=== PATIENT | female | born 2000 | race Two or more races ===

== ENCOUNTER 2024-09-18 20:54 | Observation (INO) | payer MEDICAID, SELFPAY ==
[2024-09-18 21:10] VITALS: BMI 34.7
[2024-09-18 21:12] VITALS: RESP 17; TEMP 36.8
[2024-09-18 21:16] VITALS: BP 140/89; PULSE 74
[2024-09-18 21:32] VITALS: BP 140/79; PULSE 71
== END 2024-09-18 21:57 | disposition home or self-care (01) ==
PROVIDERS: Admitting Provider Obstetrics & Gynecology; Visit Provider Obstetrics & Gynecology
DX: Z34.83 Encounter for supervision of other normal pregnancy, third trimester (principal); Z3A.39 39 weeks gestation of pregnancy
CPT/HCPCS: 59025; 59899

== ENCOUNTER 2024-09-23 05:18 | Inpatient (IN) | payer MEDICAID, SELFPAY ==
--- NOTE | 2024-09-22 21:32 | ESHP_ITS ---
Documentation for date of: 09/22/24 OB Labor/Induct. HPI History of Present Illness Chief complaint: Repeat section : 3 Para: 2 LISBET: 09/24/24 Gestational Age (weeks): 39 Gestational Age (days): 5 History of present illness: 24-year-old -0-0-2 at 39 weeks 5 days at the time of dictation is scheduled for repeat low-transverse section. Patient started care in [place] but she transferred care to [place] for trial of labor. She has been noted to have some occasional mild range blood pressures but she never received a diagnosis of gestational hypertension. The physicians overseeing her in [place] refused trial of labor due to her history of 2 previous deliveries and a vertical skin incision. Patient was scheduled for repeat at the [facility] on Sunday but she did no-show to that and was seen here in [place]. She was scheduled for the first available date of 09/23/2024. Scanned record was reviewed. Review of Systems Review of Systems Systems Reviewed: All systems reviewed, normal except as documented Meds Home Medications and Allergies Allergies Allergy/AdvReac Type Severity Reaction Status Date / Time No Known Allergies Allergy Verified 09/18/24 21:50 OB Exam Constitutional Constitutional: no acute distress Routine HEENT Exam Head: Present normocephalic and atraumatic Eye: Present EOMI and PERRL ENT: Present mucous membranes moist Routine Neck Exam Neck: Present supple and trachea midline Routine Cardiovascular Exam Cardiovascular: Present RRR Routine Abdominal Exam Abdominal: Present soft and normoactive bowel sounds Detailed Labor and Delivery Exam Dilation (cm): 0 Baseline heart rate: 140 monitor accelerations: 15x15 monitor decelerations: None Routine Extremities Exam Extremities: Present full ROM Routine Skin Exam Skin: Present intact, dry and warm Routine Neurological Exam Neurological: Present alert, oriented X3 and CN II-XII intact Routine Psychiatric Exam Psychiatric: Present normal affect and normal thought process OB Assessment & Plan Assessment and Plan (1) Previous delivery affecting : Status: Acute Assessment and plan: Admit to inpatient status for repeat low transverse IV access, CBC, type and screen, LR at 125, RPR, COVID-19 test Preeclampsia panel GBS negative Ancef 2 g prior to surgery start Reza catheter to drainage SCDs for DVT prophylaxis Anesthesia to preop for spinal anesthesia Scheduled for surgery.
[2024-09-23] VITALS (17 sets, daily range): BP systolic 118–150; BP diastolic 54–93; PULSE 58–87; RESP 15–25; TEMP 36.4–37.2; O2SAT 95–100; BMI 35.1
[2024-09-23 06:21] LABS: Collection Type, Urine Clean Catch
[2024-09-23 06:26] LABS: Basophils % (Auto) 1 % (0-2.5); Eosinophils % (Auto) 2 % (0-10); Hematocrit 34.4 % (36.0-46.0); Hemoglobin 11.5 g/dL (12.0-16.0); Lymphocytes # (Auto) 2.7 Thou/mm3 (1.0-4.8); Lymphocytes % (Auto) 32 % (10-50); Mean Corpuscular HGB Conc 33.4 g/dl (31.0-37.0); Mean Corpuscular Hemoglobin 28.5 pg (25.0-35.0); Mean Corpuscular Volume 85 fL (80-100); Monocytes # (Auto) 0.6 Thou/mm3 (0.0-0.8); Monocytes % (Auto) 7 % (0-12); Neutrophils % (Auto) 59 % (37-80); Platelet Count 144 Thou/mm3 (140-440); Red Blood Count 4.04 Miln/mm3 (4.00-5.20); White Blood Count 8.4 Thou/mm3 (3.6-11.0)
[2024-09-23 06:27] LABS: Basophils # (Auto) 0.1 Thou/mm3 (0.0-0.2); Eosinophils # (Auto) 0.1 Thou/mm3 (0.0-0.5); Immature Granulocytes % (Auto) 0 % (0-0); Immature Granulocytes Auto 0.03 Thou/mm3 (0.00-0.00); Nucleated Red Blood Cell % 0 /100 WBC (0)
[2024-09-23 06:34] LABS: Bilirubin,Urine Negative (Negative); Blood,Urine 1+ (Negative); Clarity,Urine Clear (Clear/Hazy); Color,Urine Lt-Yellow (Lt Yel-Yel); Glucose, Urine Negative (Negative); Ketones,Urine Negative (Negative); Leukocyte Esterase,Urine Negative (Negative); Nitrite,Urine Negative (Negative); PH,Urine 6.5 (5.0-7.0); Protein,Urine Trace (Neg - Trace); RBC,Urine 29 /hpf (0-3); Specific Gravity,Urine 1.025 (1.001-1.035); Squamous Epithelial Cell,Urine 1 /hpf (0-5); Urobilinogen,Urine Negative mg/dL (0.0-1.0); WBC,Urine 1 /hpf (0-5)
[2024-09-23 07:07] LABS: Alanine Aminotransferase 14 U/L (10-49); Albumin, Serum 3.8 gm/dL (3.5-5.0); Albumin/Globulin Ratio 1.8 (1.2-2.2); Alkaline Phosphatase 220 U/L (46-116); Anion Gap 8 (7-16); Aspartate Amino Transferase 14 U/L (0-34); BUN/Creatinine Ratio 28 Ratio (12-20); Bilirubin,Total 0.6 mg/dL (0.3-1.2); Blood Urea Nitrogen 14 mg/dL (9-23); Calcium 8.6 mg/dL (8.3-10.6); Calcium (Corrected) 8.8 mg/dL (8.5-10.1); Carbon Dioxide 22.3 mMol/L (20.0-31.0); Chloride 106 mMol/L (98-107); Creatinine (Component) 0.5 mg/dL (0.6-1.3); Globulin 2.1 gm/dL (2.3-3.5); Glucose 83 mg/dL (74-106); Osmolality,Calculated 271 (275-295); Sodium 136 mMol/L (136-145); Total Protein 5.9 gm/dL (5.7-8.2); Uric Acid 4.6 mg/dL (3.1-7.8); eGFR > 60 See Note
[2024-09-23] MEDS: RINGERS LACTATED 1000 ML 1,000 ML 100 ML IV (07:21)
[2024-09-23] MEDS: FAMOTIDINE INJ 10 MG/ML VIAL 2 ML 20 MG IV (07:21)
[2024-09-23] MEDS: CITRIC ACID/SODIUM CITR 15 ML UDC (BICITRA) 30 ML PO (07:21)
[2024-09-23] MEDS: ceFAZolin/D5W 2 GM IV 2 GM/100 ML BAG IV (07:21)
[2024-09-23 07:42] LABS: Fibrinogen 377 mg/dL (175-375); INR 0.9 (0.9-1.3); Partial Thromboplastin Time 26.5 Seconds (22.0-36.0); Prothrombin Time 10.1 Seconds (9.0-12.2)
--- NOTE | 2024-09-23 08:54 | PD.LDDELS ---
Data (Bravo) Data Hx Section: Yes : 3 Para: 2 Term: 2 : 0 : 0 Delivery Data (Bravo) Labor Data ROM Date: 09/23/24 ROM Time: 08:01 Rupture Type: AROM Amniotic Fluid: Clear Delivery Data Labor Onset Stage 1 Date: 09/23/24 Labor Onset Stage 1 Time: 08:01 Labor Onset Stage 2 Date: 09/23/24 Labor Onset Stage 2 Time: 08:01 Delivery Date: 09/23/24 Delivery Time: 08:02 Placenta Delivery Date: 09/23/24 Placenta Delivery Time: 08:02 Delivered by: Nick Murray Delivery nurse: Lynnette Sneed Other staff at delivery: Nursery Nurse Other staff at delivery: Rubia Pelletier Delivery Method Delivery: Delivery Type: Repeat Anesthesia Type Primary Anesthesia: Spinal Umbilical Cord Nuchal Cord: x1 Data (Bravo) Data Gender: Female Weight Grams: 3535 1 Minute Total: 9 5 Minute Total: 9
--- NOTE | 2024-09-23 08:55 | PD.GYNPROC ---
Operative Note - INVENTORY CONTROL MANAGER Procedure Date of procedure: 09/23/24 Procedure Performed: Repeat low-transverse Indication: IUP at 39 weeks and 4 days. Previous section x 2 Pre-Op diagnosis: IUP at 39 weeks and 4 days. Previous section x 2 Post-Op diagnosis: IUP at 39 weeks and 4 days. Previous section x 2 Viable female Anesthesia type: Spinal Procedure description: The patient was taken to the OR, spinal anesthesia was used and was adequate.? 2 g of Ancef were given for infection prophylaxis.? She was prepped and draped in dorsal supine position.? ?A Pfannenstiel skin incision was made with a scalpel Incision was carried down through the fascia with the Bovie and carried out to the fascia Peritoneum was? entered bluntly. The uterine incision was performed and extended bluntly.? Baby delivered from vertex presentation without any complications. ?Nose and mouth were suctioned on the operative field, cord was then clamped and cut.? The was handed off to the nurse.? Cord blood was obtained. IV oxytocin? was initiated to facilitate uterine contractions The uterus was exteriorized.? The inside of the uterus was then cleaned with a lap sponge to ensure complete removal of the placental membranes without complications. Then the hysterotomy was repaired along the uterine incision with 0 Vicryl in a locked fashion and? then in a running fashion with the same suture. 1g of TXA IV was given. The uterus was inspected in the abdomen and noted to be firm,? the uterine incision was reinspected with excellent hemostasis noted after 0.2mg of methergine IM. Muscle layer was closed with 2-0 chromic in a running fashion Fascia layer was closed with an 0 Vicryl in a running fashion Subcutaneous layer was closed with plain gut Skin was close with 4-0 Monocryl Specimen: none Estimated blood loss (ml): 700 Findings: Normal uterus, tubes, ovaries Complications: none Surgical staff Operation Date: 09/23/24 07:45 <No data on this case meets the specified criteria> Diagnosis Problem List Completed Was Problem List Reviewed/Reconciled?: Yes
[2024-09-23 08:56] LABS: Syphilis Nonreactive (Nonreactive)
[2024-09-23] MEDS: OXYTOCIN in NS 20 units 20 UNIT/1,000 ML BAG 125 UNIT IV ×2 (10:01→18:17)
[2024-09-23] MEDS: OXYTOCIN INJ 10 UNIT/ML VIAL IM (10:22)
--- NOTE | 2024-09-23 11:04 | PC.NURSE ---
Dr. Murray called order received to give TXA
[2024-09-23] MEDS: TRANEXAMIC ACID 1,000 MG IVPB 1,000 MG/100 ML BAG 200 MG IV (11:07)
[2024-09-23] MEDS: METHYLERGONOVINE INJ 0.2 MG/ML VIAL IM (12:50)
[2024-09-23 14:24] LABS: Basophils % (Auto) 0 % (0-2.5); Eosinophils % (Auto) 0 % (0-10); Hematocrit 37.3 % (36.0-46.0); Hemoglobin 12.3 g/dL (12.0-16.0); Immature Granulocytes % (Auto) 1 % (0-0); Lymphocytes # (Auto) 0.9 Thou/mm3 (1.0-4.8); Lymphocytes % (Auto) 4 % (10-50); Mean Corpuscular Hemoglobin 28.1 pg (25.0-35.0); Mean Corpuscular Volume 85 fL (80-100); Monocytes # (Auto) 0.3 Thou/mm3 (0.0-0.8); Monocytes % (Auto) 1 % (0-12); Neutrophils # (Auto) 19.3 Thou/mm3 (1.8-7.7); Neutrophils % (Auto) 94 % (37-80); Nucleated Red Blood Cell % 0 /100 WBC (0); Platelet Count 158 Thou/mm3 (140-440); Red Blood Count 4.37 Miln/mm3 (4.00-5.20); White Blood Count 20.7 Thou/mm3 (3.6-11.0)
[2024-09-23] MEDS: LOPERAMIDE 2 MG CAPSULE PO (15:27)
[2024-09-23] MEDS: ACETAMINOPHEN IVPB 1,000 MG/100 ML VIAL 250 MG IV (15:27)
[2024-09-23] MEDS: CARBOPROST TROMETH INJ 250 MCG/ML VIAL IM (15:34)
--- NOTE | 2024-09-23 15:59 | PC.NURSE ---
@[id number] dr Murray at bedside did manual extraction of clots. pt tolerated. IV pain medication is running.
[2024-09-24] VITALS: BP 116/64; PULSE 84; RESP 20; TEMP 36.9; O2SAT 96
[2024-09-24] MEDS: RINGERS LACTATED 1000 ML 1,000 ML 125 ML IV (03:08)
[2024-09-24 04:00] VITALS: BP 101/56; PULSE 85; RESP 19; TEMP 36.8; O2SAT 97
[2024-09-24 05:34] LABS: Basophils % (Auto) 0 % (0-2.5); Eosinophils % (Auto) 0 % (0-10); Hematocrit 28.5 % (36.0-46.0); Hemoglobin 9.5 g/dL (12.0-16.0); Immature Granulocytes % (Auto) 1 % (0-0); Immature Granulocytes Auto 0.06 Thou/mm3 (0.00-0.00); Lymphocytes # (Auto) 2.3 Thou/mm3 (1.0-4.8); Lymphocytes % (Auto) 18 % (10-50); Mean Corpuscular HGB Conc 33.3 g/dl (31.0-37.0); Mean Corpuscular Hemoglobin 28.2 pg (25.0-35.0); Mean Corpuscular Volume 85 fL (80-100); Monocytes % (Auto) 8 % (0-12); Neutrophils # (Auto) 9.4 Thou/mm3 (1.8-7.7); Neutrophils % (Auto) 74 % (37-80); Nucleated Red Blood Cell % 0 /100 WBC (0); Platelet Count 136 Thou/mm3 (140-440); RDW Standard Deviation 44.7 fL (36.4-46.3); Red Blood Count 3.37 Miln/mm3 (4.00-5.20); White Blood Count 12.7 Thou/mm3 (3.6-11.0)
[2024-09-24] MEDS: KETOROLAC INJ 30 MG/ML VIAL IVP (06:13)
--- NOTE | 2024-09-24 07:50 | PD.LDPPPRG ---
Subjective Subjective Interval history: In the bedside. Afebrile, tolerating p.o., ambulating, voiding, positive flatus Exam Vital Signs Temp Pulse Resp BP Pulse Ox O2 Del Method 98.3 F 85 19 101/56 L 97 Room Air 09/24/24 04:00 09/24/24 04:00 09/24/24 04:00 09/24/24 04:00 09/24/24 04:00 09/24/24 04:00 Routine Abdominal Exam Comments: Soft, appropriate tender. Uterus firm, below the umbilicus. Incision clean, dry, intact Routine Exam Comments: Lochia similar to menses Routine Extremities Exam Comments: Homans' sign negative Objective Labs 09/24/24 05:10 09/23/24 05:51 Labs: Laboratory Results - last 24 hr 09/23/24 09/23/24 09/23/24 05:51 07:23 12:56 WBC 20.7 H D RBC 4.37 Hgb 12.3 Hct 37.3 MCV 85 MCH 28.1 MCHC 33.0 RDW Std Deviation 45.0 Plt Count 158 Neut % (Auto) 94 H Lymph % (Auto) 4 L Traill % (Auto) 1 Eos % (Auto) 0 Baso % (Auto) 0 Neut # (Auto) 19.3 H Lymph # (Auto) 0.9 L Traill # (Auto) 0.3 Eos # (Auto) 0.0 Baso # (Auto) 0.0 Immature Gran # (Auto) 0.10 H Absolute Nucleated RBC 0.00 Immature Gran % 1 H Nucleated RBC % 0 Syphilis Serology Nonreactive Blood Type Cancelled O Positive Antibody Screen Cancelled NEGATIVE Crossmatch See Detail Blood Bank Wristband ID Cancelled Yes 09/24/24 05:10 WBC 12.7 H D RBC 3.37 L Hgb 9.5 L D Hct 28.5 L MCV 85 MCH 28.2 MCHC 33.3 RDW Std Deviation 44.7 Plt Count 136 L Neut % (Auto) 74 Lymph % (Auto) 18 Traill % (Auto) 8 Eos % (Auto) 0 Baso % (Auto) 0 Neut # (Auto) 9.4 H Lymph # (Auto) 2.3 Traill # (Auto) 1.0 H Eos # (Auto) 0.0 Baso # (Auto) 0.0 Immature Gran # (Auto) 0.06 H Absolute Nucleated RBC 0.00 Immature Gran % 1 H Nucleated RBC % 0 Syphilis Serology Blood Type Antibody Screen Crossmatch Blood Bank Wristband ID Assessment & Plan Problem List (1) Previous delivery affecting : Status: Acute Assessment Comment Assessment comment: 24 years status post repeat at term. Postop day 1 Plan Comment Plan Comment: Routine care. Impression relation. IV iron infusions Time Spent With Patient Time: Total time spent is greater than 50% in coordination of care (as documented) at patient's floor/unit and/or counseling patient:
[2024-09-24 09:05] VITALS: BP 121/65; PULSE 89; RESP 16; TEMP 37.1; O2SAT 97
[2024-09-24] MEDS: HYDROcodone/APAP 5/325 TABLET 1 TAB PO ×2 (09:43→15:44)
--- NOTE | 2024-09-24 10:52 | PC.SS ---
INFANTRY OPERATIONS SPECIALIST received referral indicating FOB requesting assistance with FMLA paperwork. INFANTRY OPERATIONS SPECIALIST utilized translation services to inform FOB that request would need to submitted with employer's human resource department. FOB acknowledged plan to follow up with employment HR department. INFANTRY OPERATIONS SPECIALIST observed MOB interacting appropriately with daughter. No concerns voiced from bedside nurse.
[2024-09-24 11:43] VITALS: BP 115/68; PULSE 80; RESP 18; TEMP 36.9; O2SAT 98
[2024-09-24 15:40] VITALS: BP 122/81; PULSE 82; RESP 16; TEMP 37; O2SAT 96
[2024-09-24] MEDS: guaiFENesin/DM 10 ML UDC PO (17:11)
--- NOTE | 2024-09-24 17:28 | XR_ITS ---
Examination: PA lateral chest 2 views Technique: Upright PA lateral chest 2 views Exam date and time: September 24, 2024 1758 hrs. Indications: Coughing chest pain post labor today. Findings: Suspicious for early pneumonia at the lung bases with small bilateral pleural effusions evident on the lateral view No pulmonary edema Intact osseous structures Impression: Suspicious for early bibasilar pneumonia
[2024-09-24] MEDS: AZITHROMYCIN 250 MG TABLET 500 MG PO (17:38)
--- NOTE | 2024-09-24 18:16 | PC.NURSE ---
PT WAS COMPLAINING OF COUGH. DAVE LOWER LUNGS WITH CRACKLES. VS STABLE NO TEMP. MADE DR CHAVEZ AWARE. NEW ORDER FOR 2 VIEW CXR AND PO AZITHROMYCIN.
[2024-09-24 21:01] VITALS: BP 128/81; PULSE 81; RESP 18; TEMP 37.1; O2SAT 95
[2024-09-24] MEDS: cefTRIAXone/D5w 1gm IV premix 50 ML IV (21:14)
[2024-09-25] MEDS: IBUPROFEN TAB 400 MG TABLET 800 MG PO (00:27)
[2024-09-25 04:45] VITALS: BP 126/81; PULSE 79; RESP 16; TEMP 36.8; O2SAT 95
[2024-09-25] MEDS: guaiFENesin/DM 10 ML UDC PO ×3 (07:21→22:11)
[2024-09-25] MEDS: AZITHROMYCIN 250 MG TABLET 500 MG PO (08:34)
[2024-09-25] MEDS: ENOXAPARIN SOD INJ 40 MG/0.4 ML SYRINGE SC (08:34)
--- NOTE | 2024-09-25 08:45 | PD.LDPPPRG ---
Subjective Subjective Interval history: Delivery type: Patient doing well this morning. No acute complaints. Ambulating, tolerating p.o. and voiding without difficulty. HTN/Pre-Eclampsia screen: No chest pain, shortness of breath, headache, visual changes, epigastric or right upper quadrant pain. Breast-feeding, lochia diminishing. Bowel: Flatus+/ BM+ Exam Vital Signs Temp Pulse Resp BP Pulse Ox O2 Del Method 98.3 F 79 16 126/81 95 Room Air 09/25/24 04:45 09/25/24 04:45 09/25/24 04:45 09/25/24 04:45 09/25/24 04:45 09/25/24 04:45 Constitutional Constitutional: no acute distress Routine HEENT Exam Head: Present normocephalic and atraumatic Eye: Present EOMI and PERRL ENT: Present mucous membranes moist Routine Neck Exam Neck: Present supple and trachea midline Routine Respiratory Exam Respiratory: Present chest non-tender, lungs clear, normal breath sounds and no resp distress Routine Cardiovascular Exam Cardiovascular: Present RRR Routine Abdominal Exam Abdominal: Present soft and normoactive bowel sounds Routine Extremities Exam Extremities: Present full ROM Routine Skin Exam Skin: Present intact, dry and warm Routine Neurological Exam Neurological: Present alert, oriented X3 and CN II-XII intact Routine Psychiatric Exam Psychiatric: Present normal affect and normal thought process Objective Labs 09/24/24 05:10 09/23/24 05:51 Assessment & Plan Problem List (1) Previous delivery affecting : Status: Acute (2) delivery delivered: Status: Acute Assessment and plan: PPD/POD#2 1. Continue routine care 2. Transition to PO meds. 3. Encourage to ambulate/ breast-feed 4. Anticipate discharge home today. Time Spent With Patient Time: Total time spent is greater than 50% in coordination of care (as documented) at patient's floor/unit and/or counseling patient:
--- NOTE | 2024-09-25 08:45 | PD.LDDS ---
DS: Providers Provider Date of admission: 09/23/24 05:18 Primary care physician: Physician No Primary/Family Admitting Provider: Nick Murray MD Attending Provider on Admission: Nima Gonzalez MD Consults: 09/23/24 08:51 Referral Routine Comment: Attending Provider on DC: Nima Gonzalez MD Discharging Provider: Nima Gonzalez MD DS: Diagnosis Discharge Diagnosis (1) delivery delivered: Status: Acute (2) Previous delivery affecting : Status: Acute Problem List Completed Was Problem List Reviewed/Reconciled?: Yes Summary/Hosp Course Brief History: 24-year-old -0-0-2 at 39 weeks 5 days at the time of dictation is scheduled for repeat low-transverse section. Patient started care in [place] but she transferred care to [place] for trial of labor. She has been noted to have some occasional mild range blood pressures but she never received a diagnosis of gestational hypertension. The physicians overseeing her in [place] refused trial of labor due to her history of 2 previous deliveries and a vertical skin incision. Patient was scheduled for repeat at the [facility] [place] on Sunday but she did no-show to that and was seen here in [place]. She was scheduled for the first available date of 09/23/2024. Scanned record was reviewed. Peripartum Data Procedures: Procedures Operation Date: 09/23/24 07:45 Actual Procedure Side Surgeon p in OB Nick Murray MD Time Spent with Patient Time attestation: Total time spent providing and/or coordinating discharge services: Exam Vital Signs Temp Pulse Resp BP Pulse Ox O2 Del Method 98.3 F 79 16 126/81 95 Room Air 09/25/24 04:45 09/25/24 04:45 09/25/24 04:45 09/25/24 04:45 09/25/24 04:45 09/25/24 04:45 Discharge Plan Plan Patient Disposition: HOME (Self Care) Patient condition on transfer: Stable Prescriptions/Referrals Prescriptions/Med Rec: New hydrocodone-acetaminophen 5-325 mg Tablet 1 tab PO Q6H MDD 4 PRN (Reason: Patient rated pain 7 to 8) 5 Days Qty: 20 0RF ibuprofen 400 mg Tablet 800 mg PO Q8HR PRN (Reason: Pain Scale 4-6 (Moderate) 10 Days Qty: 40 0RF Referrals: Nima Gonzalez MD [Physician] - No Primary/Family,Physician [Primary Care Provider] - Patient/Caregiver Discharge Instructions Meds to Beds: Yes Discharge Activity: activity as tolerated Education Materials: C Section Dc Print Language: Zambian Stand Alone Forms: Madelin Award Info., Patient Portal Info Letter, DC from Surgery Discharge Order Discharge Orders: Discharge (Routine); Ordered 09/25/24 Ordered By: Nima Gonzalez Planned Discharge Date 09/25/24
[2024-09-25 08:55] VITALS: BP 150/97; PULSE 79; RESP 16; TEMP 36.8; O2SAT 95
[2024-09-25 12:10] VITALS: BP 141/84; PULSE 86; RESP 17; TEMP 36.7; O2SAT 95
[2024-09-25 18:50] VITALS: BP 133/78; PULSE 86; RESP 19; TEMP 37.3; O2SAT 97
[2024-09-25 18:51] VITALS: TEMP 37.3
[2024-09-25] MEDS: ACETAMINOPHEN 325 MG TABLET 650 MG PO (18:51)
--- NOTE | 2024-09-25 19:14 | PC.NURSE ---
MD Gonzalez Updated on patients Vitals, Per MD cancel discharge, continue antibiotics until tomorrow.
[2024-09-25 22:06] VITALS: BP 138/79; PULSE 78; RESP 20; TEMP 36.9; O2SAT 95
[2024-09-25] MEDS: cefTRIAXone/D5w 1gm IV premix 50 ML IV (22:11)
[2024-09-26 04:39] VITALS: BP 131/79; PULSE 83; RESP 18; TEMP 37.5; O2SAT 95
[2024-09-26] MEDS: IBUPROFEN TAB 400 MG TABLET 800 MG PO (04:53)
[2024-09-26 07:40] VITALS: BP 133/77; PULSE 76; RESP 18; TEMP 36.9; O2SAT 97
--- NOTE | 2024-09-26 08:26 | PD.LDPPPRG ---
Subjective Subjective Interval history: Delivery type: with postoperative pneumonia, fever has now resolved. Patient doing well this morning. No acute complaints. Ambulating, tolerating p.o. and voiding without difficulty. HTN/Pre-Eclampsia screen: No chest pain, shortness of breath, headache, visual changes, epigastric or right upper quadrant pain. Breast-feeding, lochia diminishing. Bowel: Flatus+/ BM+ Exam Vital Signs Temp Pulse Resp BP Pulse Ox O2 Del Method 99.5 F 83 18 131/79 H 95 Room Air 09/26/24 04:39 09/26/24 04:39 09/26/24 04:39 09/26/24 04:39 09/26/24 04:39 09/26/24 04:39 Constitutional Constitutional: no acute distress Routine HEENT Exam Head: Present normocephalic and atraumatic Eye: Present EOMI and PERRL ENT: Present mucous membranes moist Routine Neck Exam Neck: Present supple and trachea midline Routine Respiratory Exam Respiratory: Present chest non-tender, lungs clear, normal breath sounds and no resp distress Routine Cardiovascular Exam Cardiovascular: Present RRR Routine Abdominal Exam Abdominal: Present soft and normoactive bowel sounds Routine Extremities Exam Extremities: Present full ROM Routine Skin Exam Skin: Present intact, dry and warm Routine Neurological Exam Neurological: Present alert, oriented X3 and CN II-XII intact Routine Psychiatric Exam Psychiatric: Present normal affect and normal thought process Objective Labs 09/24/24 05:10 09/23/24 05:51 Labs: Laboratory Results - last 24 hr 09/23/24 07:23 Crossmatch See Detail Assessment & Plan Problem List (1) delivery delivered: Status: Acute Assessment and plan: PPD/POD#2 1. Continue routine care 2. Transition to PO meds. 3. Encourage to ambulate/ breast-feed 4. Anticipate discharge home today on oral antibiotics for pneumonia (2) Previous delivery affecting : Status: Acute Time Spent With Patient Time: Total time spent is greater than 50% in coordination of care (as documented) at patient's floor/unit and/or counseling patient:
--- NOTE | 2024-09-26 08:27 | PD.LDDS ---
DS: Providers Provider Date of admission: 09/23/24 05:18 Primary care physician: Physician No Primary/Family Admitting Provider: Nick Murray MD Attending Provider on Admission: Nima Gonzalez MD Consults: 09/23/24 08:51 Referral Routine Comment: Attending Provider on DC: Nima Gonzalez MD Discharging Provider: Nima Gonzalez MD DS: Diagnosis Discharge Diagnosis (1) delivery delivered: Status: Acute Problem List Completed Was Problem List Reviewed/Reconciled?: Yes Summary/Hosp Course Brief History: 24-year-old -0-0-2 at 39 weeks 5 days at the time of dictation is scheduled for repeat low-transverse section. Patient started care in [place] but she transferred care to [place] for trial of labor. She has been noted to have some occasional mild range blood pressures but she never received a diagnosis of gestational hypertension. The physicians overseeing her in [place] refused trial of labor due to her history of 2 previous deliveries and a vertical skin incision. Patient was scheduled for repeat at the [facility] on Sunday but she did no-show to that and was seen here in [place]. She was scheduled for the first available date of 09/23/2024. Scanned record was reviewed. Peripartum Data Procedures: Procedures Operation Date: 09/23/24 07:45 Actual Procedure Side Surgeon p in OB Nick Murray MD Time Spent with Patient Time attestation: Total time spent providing and/or coordinating discharge services: Exam Vital Signs Temp Pulse Resp BP Pulse Ox O2 Del Method 99.5 F 83 18 131/79 H 95 Room Air 09/26/24 04:39 09/26/24 04:39 09/26/24 04:39 09/26/24 04:39 09/26/24 04:39 09/26/24 04:39 Discharge Plan Plan Patient Disposition: HOME (Self Care) Patient condition on transfer: Stable Prescriptions/Referrals Prescriptions/Med Rec: New hydrocodone-acetaminophen 5-325 mg Tablet 1 tab PO Q6H MDD 4 PRN (Reason: Patient rated pain 7 to 8) 5 Days Qty: 20 0RF ibuprofen 400 mg Tablet 800 mg PO Q8HR PRN (Reason: Pain Scale 4-6 (Moderate) 10 Days Qty: 40 0RF amoxicillin-pot clavulanate 875-125 mg Tablet 1 tab PO BID 10 Days Qty: 20 0RF Referrals: Nima Gonzalez MD [Physician] - No Primary/Family,Physician [Primary Care Provider] - Patient/Caregiver Discharge Instructions Meds to Beds: Yes Discharge Activity: activity as tolerated Education Materials: After a , C Section Dc Print Language: Yakut Stand Alone Forms: Madelin Award Info., Patient Portal Info Letter, DC from Surgery Discharge Order Discharge Orders: Discharge (Routine); Ordered 09/26/24 Ordered By: Nima Gonzalez Planned Discharge Date 09/26/24
[2024-09-26] MEDS: ENOXAPARIN SOD INJ 40 MG/0.4 ML SYRINGE SC (08:53)
[2024-09-26] MEDS: guaiFENesin/DM 10 ML UDC PO (09:01)
[2024-09-26] MEDS: AMOXICILLIN/POT CLAV 875 TABLET 1 TAB PO (09:48)
[2024-09-26 11:20] VITALS: BP 142/90; RESP 16; TEMP 36.6; O2SAT 97
[2024-09-26] MEDS: DIPHTH,PERTUSS(ACELL),TET VAC 0.5 ML VIAL IMi (12:26)
[2024-09-26 15:10] VITALS: BP 129/88; PULSE 81; RESP 18; TEMP 36.7; O2SAT 97
== END 2024-09-26 15:45 | disposition home or self-care (01) | DRG 540 ==
LOC: S4SX 06:23 → S4NX 08:07
PROVIDERS: Admitting Provider Obstetrics & Gynecology; Visit Provider Obstetrics & Gynecology
PROC: 10D00Z1 Extraction of Products of Conception, Low, Open Approach (ICD-10-PCS; CPT 59514; principal; 2024-09-23 07:30)
DX: O34.211 Maternal care for low transverse scar from previous cesarean delivery (principal); O69.81X0 Labor and delivery complicated by cord around neck, without compression, not applicable or unspecified; Z37.0 Single live birth; Z3A.39 39 weeks gestation of pregnancy; Z23 Encounter for immunization; O99.52 Diseases of the respiratory system complicating childbirth; J18.9 Pneumonia, unspecified organism
CPT/HCPCS: 36415; 71046; 80053; 81001; 84550; 85025; 85384; 85610; 85730; 86780; 86850; 86900; 86901; 86923; 90715; 94762; A4649; J0131; J0689; J0696; J1650; J1885; J2210; J2250; J2274; J2590; J3490; J7120; A9270; J0690; J2270